=== PATIENT | female | born 1990 | race African-American/Black ===

== ENCOUNTER 2016-12-17 10:21 | Emergency (ER) | payer OTHER ==
[2016-12-17 10:35] VITALS: BMI 30.2
[2016-12-17] MEDS ORDERED: SODIUM CHLORIDE 1,000 ML IV ONE ×2 (11:07→12:18)
--- NOTE | 2016-12-17 11:21 | PDOC ---
History of Present Illness - History of Present Illness Initial Comments: 12/17/16 16:13 The patient is a 26-year-old woman, accompanied by family, with no significant past medical history, who presents to the emergency department for complaint of pain and increased swelling to the left side of her face s/p wisdom teeth extraction on . the patient reports difficulty opening her mouth and pain with swallowing. She states the swelling after her right teeth were extracted was not as bad as the swelling on the left today."" She also reports the oral surgeon stated it was difficult taking the two left wisdom teeth out. She reports she can not open her mouth or touch her face without pain. She also reports her saliva as dark, almost black. She states she can taste an infection"". She denies chest pain, shortness of breath, headache and dizziness. She denies fever, chills, nausea, vomit, diarrhea and constipation. She denies dysuria, frequency, urgency and hematuria. Allergies: Penicillin, Azithromycin, Cefuroxime. PCP - Dr. Chiqui Sullivan [phone] Oral Surgeon - Dr. Conroy ([phone]) <Thao Mcdaniels - Last Filed: 12/17/16 16:13> - General History Source: Patient Exam Limitations: No Limitations <Keith Downey - Last Filed: 12/17/16 16:20> - General Chief Complaint: Edema Stated Complaint: SWOLLEN FACE Time Seen by Provider: 12/17/16 10:48 Past History <Thao Mcdaniels - Last Filed: 12/17/16 16:13> - Past Medical History Other medical history: DENIES. - Immunization History Immunization Up to Date: Yes - Psycho/Social/Smoking Cessation Hx Anxiety: No Suicidal Ideation: No Smoking History: Never smoked Have you smoked in the past 12 months: No Hx Alcohol Use: Yes (SOCIAL) Drug/Substance Use Hx: No Substance Use Type: None <Keith Downey - Last Filed: 12/17/16 16:20> - Past Medical History Allergies/Adverse Reactions: Allergies Allergy/AdvReac Type Severity Reaction Status Date / Time Penicillins Allergy Intermediate "inflamed Verified 12/17/16 10:31 stomach lining" azithromycin [From Zithromax] Allergy Vomiting Verified 12/17/16 10:31 cefuroxime Allergy Vomiting Verified 12/17/16 10:31 Home Medications: Ambulatory Orders NK [No Known Home Medication] 11/14/15 Review of Systems - Review of Systems Able to Perform ROS?: Yes Comments:: 12/17/16 16:14 CONSTITUTIONAL: No reported: Fever, Chills, Diaphoresis, Generalized Weakness, Malaise, Loss of Appetite HEENT: (+) swelling and pain to left face. Difficulty Swallowing, Mouth Swelling, No reported: Rhinorrhea, Nasal Congestion, Throat Pain, Throat Swelling, Ear Pain , Eye Pain, Visual Changes CARDIOVASCULAR: No reported: Chest Pain, Syncope, Palpitations, Irregular Heart Rate, Lightheadedness, Peripheral Edema RESPIRATORY: No reported: Cough, Shortness of Breath, SOB with Exertion, Orthopnea, Wheezing , Stridor, Hemoptysis GASTROINTESTINAL: No reported: Abdominal pain, Abdominal Distension, Nausea, Vomiting, Diarrhea, Constipation, Melena, Hematochezia GENITOURINARY: No reported: Dysuria, Frequency, Urgency, Hesitancy, Flank Pain, Genital Pain MUSCULOSKELETAL: No reported: Myalgia, Arthralgia, Joint Swelling, Back pain, Neck Pain SKIN: No reported: Rash, Itching, Pallor HEMEATOLOGIC/IMMUNOLOGIC: No reported: Easy Bleeding, Easy Bruising, Lymphadenopathy, Frequent infections ENDOCRINE: No reported: Unexplained Weight Gain, Unexplained Weight Loss, Heat Intolerance , Cold Intolerance NEUROLOGIC: No reported: Headache, Focal Weakness, Paresthesias, Vertigo, Lightheadedness, Unsteady Gait, Seizure, Mental Status Changes, Incontinence PSYCHIATRIC: No reported: Anxiety, Depression <Thao Mcdaniels - Last Filed: 12/17/16 16:13> *Physical Exam - Vital Signs Last Vital Signs Temp Pulse Resp BP Pulse Ox 98.6 F 119 H 19 132/96 99 12/17/16 10:31 12/17/16 10:31 12/17/16 10:31 12/17/16 10:31 12/17/16 10:31 - Physical Exam Comments: 12/17/16 16:14 GENERAL: The patient is awake, alert, and fully oriented, Nontoxic - in no acute distress. HEAD: Normocephalic, atraumatic. EYES: extraocular movements intact, sclera anicteric, conjunctiva clear. ENT: (+) Edema to the left mandible. Normal voice, Moist mucous membranes. NECK: Normal range of motion, supple LUNGS: Breath sounds equal, clear to auscultation bilaterally. No wheezes, no rhonchi, no rales. HEART: (+) Tachycardic rate with normal rhythm without murmur, rub or gallop. ABDOMEN: Soft, nontender, normoactive bowel sounds. No guarding, no rebound.No CVA tenderness EXTREMITIES: Normal range of motion, no edema. No clubbing or cyanosis. No cords, erythema, or tenderness. NEUROLOGICAL: No facial assymetry, Normal speech, PSYCH: Normal mood, normal affect. SKIN: Warm, Dry, normal turgor <Thao Mcdaniels - Last Filed: 12/17/16 16:13> - Vital Signs Last Vital Signs Temp Pulse Resp BP Pulse Ox 98.6 F 119 H 19 132/96 99 12/17/16 10:31 12/17/16 10:31 12/17/16 10:31 12/17/16 10:31 12/17/16 10:31 <Keith Downey - Last Filed: 12/17/16 16:20> ED Treatment Course - LABORATORY CBC & Chemistry Diagram: 12/17/16 11:40 12/17/16 11:40 - ADDITIONAL ORDERS Additional order review: Laboratory Results 12/17/16 12/17/16 11:40 11:40 Sodium 135 L Potassium 4.0 Chloride 99 Carbon Dioxide 26 Anion Gap 10 BUN 10 Creatinine 0.8 Creat Clearance w eGFR > 60 Random Glucose 77 Calcium 9.6 Total Bilirubin 0.8 D AST 40 H D ALT 77 D Alkaline Phosphatase 87 D Total Protein 8.7 H Albumin 3.5 Serum , Qual Negative 12/17/16 11:40 RBC 4.31 MCV 83.9 MCHC 32.9 RDW 13.3 MPV 8.6 D Neutrophils % 74.9 D Lymphocytes % 15.2 D Monocytes % 8.8 Eosinophils % 0.4 D Basophils % 0.7 D - RADIOLOGY Radiograph Interpretation: EXAM#: TYPE/EXAM: RESULT: [id number] CT/SOFT TISSUE NECK CT WITH CONTR Neck soft tissue CT (with contrast) Clinical information: evaluate for abscess in left neck / jaw Multiplanar imaging was performed following the intravenous administration of nonionic contrast. A 1.5 cm osseous defect is seen to also contains air within the left posterior inferior alveolar ridge in the region of the third molar tooth There is also visualization of a 1 cm focal osseous defect within the left superior alveolar ridge posteriorly also containing air. This defect may also communicate with the alveolar recess of the ipsilateral maxillary sinus. Soft tissue edema is seen within the tissues abutting the left mandible and left maxilla in the region of the previously described osseous defects. No drainable fluid collection is seen. Subcutaneous edema is also noted. Small amount of soft tissue air accumulation is seen abutting the left mandible laterally as well as within the left retroantral fat-pad. Soft tissue edema is seen within the left parapharyngeal space as well as along the left lateral wall of the oropharynx. There is resultant mild airway luminal narrowing. Inflammatory thickening of the left platysma muscle is noted. There is mild to moderate mucosal thickening within the alveolar recess of the left maxillary sinus. Enlarged bilateral cervical and posterior triangle lymph nodes are seen which are probably on a reactive basis. IMPRESSION: No drainable fluid collection is seen. Focal osseous erosions are seen within the left maxilla and left mandible as discussed involving the third molar tooth sockets. Contiguous soft tissue edema is seen as well as a small amount of soft tissue air accumulation. There is equivocal contiguous extension into the alveolar recess of the left maxillary sinus. Edema is also seen along the left lateral wall of the oropharynx with mild airway narrowing. Reported By: Neri Garcia MD 12/17/16 9241 - Medications Given in the ED: ED Medications Discontinued Medications Generic Name Dose Route Start Last Admin Trade Name Freq PRN Reason Stop Dose Admin Sodium Chloride 1,000 mls @ 1,000 mls/hr 12/17/16 11:07 12/17/16 11:27 Normal Saline - IV 12/17/16 12:06 1,000 mls/hr .Q1H ONE Administration Sodium Chloride 1,000 mls @ 1,000 mls/hr 12/17/16 12:18 12/17/16 12:53 Normal Saline - IV 12/17/16 13:17 1,000 mls/hr .Q1H ONE Administration Ibuprofen 400 mg 12/17/16 12:17 12/17/16 12:53 Motrin - PO 12/17/16 12:18 400 mg ONCE ONE Administration <Thao Mcdaniels - Last Filed: 12/17/16 16:13> - LABORATORY CBC & Chemistry Diagram: 12/17/16 11:40 12/17/16 11:40 <Keith Downey - Last Filed: 12/17/16 16:20> Medical Decision Making - Medical Decision Making 12/17/16 11:14 29y F no pmhx with recent wisdom tooth extraction on on , presents with swelling and difficulty eating/drinking due to her pain, pt is on clindamycin, and is tolerating fluids through her mouth, but is unable to open her mouth enough due to the swelling/discomfort. no associated fevers/chlils. suspect swelling secondary to wisdome teeth consider possible infection/abscess, will obtain blood work will give fluids as pt has drymmm and is tachycardic A portion of this note was documented by scribe services under my direction. I have reviewed the details of the note, within reason, and agree with the documentation with the following case summary and management plan written by me 12/17/16 13:01 pts labs noted for leukocytosis will obtain CT to r/o abcess/collection 12/17/16 15:[address] c/w post wisdom tooth extraction no signs of abscess or drainable collection pt tolerating oral intake will dc with pmd fu return precautions were discussed I discussed the physical exam findings, ancillary test results and final diagnoses with the patient. I answered all of the patient's questions. The patient was satisfied with the care received and felt comfortable with the discharge plan and treatment plan. The patient will call their primary care physician within 24 hours to arrange follow-up and will return to the Emergency Department with any new, persistent or worsening symptoms. <Keith Downey - Last Filed: 12/17/16 16:20> *DC/Admit/Observation/Transfer - Attestations Scribe Attestion: 12/17/16 14:50 Documentation prepared by Thao Mcdaniels, acting as medical secretary teacher for Keith Downey MD <Thao Mcdaniels - Last Filed: 12/17/16 16:13> - Discharge Dispostion Admit: No <Keith Downey - Last Filed: 12/17/16 16:20> Diagnosis at time of Disposition: Mandibular swelling, Dehydration - Discharge Dispostion Disposition: HOME Condition at time of disposition: Improved - Referrals Referrals: Chiqui Sullivan [Non Staff, Medical] - - Patient Instructions Additional Instructions: Return to the emergency department immediately with ANY new, persistent or worsening symptoms including any fevers, chills, worsening swelling, difficulty swallowing, voice changes or any other concerns. Take any ibuprofen/tylenol for pain. You MUST call and follow up with your dental surgeon in 2-3 days for further evaluation of your symptoms if not improving. Results were discussed with you. Please make sure your doctor reviews the results of your emergency evaluation. Print Language: AZERI
[2016-12-17 12:13] LABS: ALBUMIN 3.5 g/dl (3.4-5.0); ALK PHOS 87 U/L (45-117); ANION GAP 10 (8-16); BILIRUBIN,TOTAL 0.8 mg/dL (0.2-1.0); CALCIUM 9.6 mg/dL (8.5-10.1); CO2 26 mmol/L (21-32); CREATININE 0.8 mg/dL (0.55-1.02); GLUCOSE,RANDOM 77 mg/dL (74-106); SGOT/AST 40 U/L (15-37); SGPT/ALT 77 U/L (12-78); TOT PROT 8.7 g/dl (6.4-8.2)
[2016-12-17] MEDS ORDERED: IBUPROFEN 400 MG TABLET (FP) PO ONE ×2 (12:17→12:48)
[2016-12-17 12:19] LABS: BASOPHIL 0.7 % (0-2.0); EOSINOPHIL 0.4 % (0-4.5); MCH 27.6 pg (25.7-33.7); MCHC 32.9 g/dl (32.0-36.0); MEAN CELL VOLUME 83.9 fl (80-96); MEAN PLT VOLUME 8.6 fl (7.5-11.1); NEUTROPHILS 74.9 % (42.8-82.8); PLATELET COUNT 327 K/MM3 (134-434); RDW 13.3 % (11.6-15.6); WHITE BLOOD COUNT 15.7 K/mm3 (4.0-10.0)
[2016-12-17 16:05] VITALS: BP 132/93; PULSE 87; TEMP 98
== END 2016-12-17 16:30 | disposition home or self-care (01) ==
LOC: JER 10:21
PROC: 3E0337Z Introduction of Electrolytic and Water Balance Substance into Peripheral Vein, Percutaneous Approach (ICD-10-PCS; principal; 2016-12-17)
DX: K08.109 Complete loss of teeth, unspecified cause, unspecified class (principal); R60.0 Localized edema
CPT/HCPCS: 36415; 70491-TC; 80053; 84703; 85025; 99282-25

== ENCOUNTER 2024-02-23 10:37 | Emergency (ER) | payer BC, OTHER ==
[2024-02-23 10:51] VITALS: RESP 18; TEMP 98.7; BMI 34.9
[2024-02-23 11:39] VITALS: BP 141/76; PULSE 92
== END 2024-02-23 12:34 | disposition home or self-care (01) ==
LOC: JER 10:37
DX: I10 Essential (primary) hypertension (principal)
CPT/HCPCS: 71046-TC-FY; 93005; 93010; 99284-25